=== PATIENT | female | born 1955 | race Caucasian/White ===

== ENCOUNTER 2021-09-06 01:13 | Emergency (ER) | payer MEDICARE, BC ==
[~2021-09-06] VITALS: Ht 162.6 cm; Wt 68.0 kg
[2021-09-06] MEDS ORDERED: CARISOPRODOL 350 MG TABLET PO ONE (01:30)
[2021-09-06] MEDS ORDERED: HYDROMORPHONE 1 MG/1 ML DISP.SYRIN IM ONE (01:30)
--- NOTE | 2021-09-06 01:31 | NUR ---
[place] FROM HOME. AAOX4. NOT IN RESP DISTRESS. L LOWER BACK PAIN SHOOTING DOWN TO LEFT LEG. STARTED THURSDAY WORST THURSDAY. PAIN 10/10. [place] SHOOTING. WAS AT [facility] FOR EVAL. AWAITING ORDERS
[2021-09-06] MEDS ORDERED: HYDROMORPHONE 1 MG/1 ML DISP.SYRIN ONE (01:40)
[2021-09-06] MEDS ORDERED: CARISOPRODOL 350 MG TABLET ONE (01:40)
[2021-09-06 01:58] VITALS: BP 152/72
[2021-09-06] MEDS ORDERED: CARI350T PO (02:21)
[2021-09-06] MEDS ORDERED: HYDR-4275 PO (02:21)
[2021-09-06] MEDS ORDERED: IBUP-1957 PO (02:21)
== END 2021-09-06 05:31 | disposition home or self-care (01) ==
LOC: ER 01:23
DX: M54.42 Lumbago with sciatica, left side (principal); Z79.899 Other long term (current) drug therapy
CPT/HCPCS: 96372; 99283; J1170